=== PATIENT | female | born 1940 | race Caucasian/White ===

== ENCOUNTER 2017-06-04 13:59 | Emergency (ER) | payer OTHER ==
--- NOTE | 2017-06-04 14:28 | EDPHY ---
H & P Stated Complaint: pt c/o anxiety reactions getting worse since january Time Seen by Provider: 06/04/17 14:27 HPI/ROS: CHIEF COMPLAINT: Anxiety, chest pain HISTORY OF PRESENT ILLNESS: The patient presents to the ED with a 1 day history of chest pain and anxiety. The patient reports that she was recently started on BuSpar for anxiety. She has been increasing the dose of the medication over the past several weeks. The patient has been on lorazepam for anxiety in the past. She recently traveled to the area from [place]. The patient denies any fever, cough or congestion. She denies any asymmetric calf pain or swelling. She denies pleuritic chest pain. The patient has no history of coronary artery disease. REVIEW OF SYSTEMS: A comprehensive 10 point review of systems is otherwise negative aside from elements mentioned in the history of present illness. Source: Patient Exam Limitations: No limitations - Personal History Current Tetanus Diphtheria and Acellular Pertussis (TDAP): Yes - Medical/Surgical History Hx Asthma: No Hx Chronic Respiratory Disease: No Hx Diabetes: No Hx Cardiac Disease: No Hx Renal Disease: No Hx Cirrhosis: No Hx Alcoholism: No Hx HIV/AIDS: No Hx Splenectomy or Spleen Trauma: No Other PMH: tubal ligation, tonsilectomy, prolonged exposure to carbon monoxide. - Social History Smoking Status: Former smoker - Physical Exam Exam: General Appearance: Alert, no distress Eyes: Pupils equal and round no pallor or injection ENT, Mouth: Mucous membranes moist Respiratory: There are no retractions, lungs are clear to auscultation Cardiovascular: Regular rate and rhythm Gastrointestinal: Abdomen is soft and nontender, no masses, bowel sounds normal Neurological: 5/5 strength all 4 extremities Skin: Warm and dry, no rashes Musculoskeletal: Neck is supple nontender Extremities: symmetrical, full range of motion Constitutional: Initial Vital Signs Temperature (C) 36.9 C 06/04/17 14:06 Heart Rate 81 06/04/17 14:06 Respiratory Rate 16 06/04/17 14:06 Blood Pressure 121/75 H 06/04/17 14:06 O2 Sat (%) 95 06/04/17 14:06 O2 Delivery Mode Room Air Allergies/Adverse Reactions: No Known Allergies Allergy (Unverified 06/04/17 14:04) Home Medications: Medication Instructions Recorded LORazepam [Ativan] 0.5 tab PO BID PRN #10 tab 06/04/17 Lorazepam 06/04/17 busPIRone 06/04/17 Medical Decision Making - Diagnostics EKG Interpretation: EKG: Complete interpretation has been separately recorded in the AVST archive. Summary impression: Sinus rhythm, rate 74. ED Course/Re-evaluation: The patient presents to the ED with anxiety and associated symptoms of chest pain from that condition. The patient has no risk factors for cardiac disease. Her chest pain is nonexertional. The patient does report that the source of the discomfort and pain is from her anxiety. The patient's EKG demonstrates no evidence of ischemia. The patient's troponin is normal. The patient was given a 0.5 mg of Ativan. The patient will be given a short course of Ativan. She plans to follow up with her primary care provider in several weeks. She has been informed that Ativan is habit forming and not appropriate for chronic use. The patient will be discharged from the emergency department. Differential Diagnosis: Differential diagnosis considered includes anxiety, acute coronary syndrome, pericarditis, myocarditis - Data Points Laboratory Results: Laboratory Results 06/04/17 15:00 06/04/17 15:00 06/04/17 06/04/17 15:00 15:00 WBC 6.05 10^3/uL 10^3/uL (3.80-9.50) RBC 4.19 10^6/uL 10^6/uL (4.18-5.33) Hgb 13.6 g/dL g/dL (12.6-16.3) Hct 39.8 % % (38.0-47.0) MCV 95.0 fL fL (81.5-99.8) MCH 32.5 pg pg (27.9-34.1) MCHC 34.2 g/dL g/dL (32.4-36.7) RDW 13.8 % % (11.5-15.2) Plt Count 262 10^3/uL 10^3/uL (150-400) MPV 9.9 fL fL (8.7-11.7) Neut % (Auto) 64.7 % % (39.3-74.2) Lymph % (Auto) 25.3 % % (15.0-45.0) Lea % (Auto) 7.6 % % (4.5-13.0) Eos % (Auto) 1.7 % % (0.6-7.6) Baso % (Auto) 0.5 % % (0.3-1.7) Nucleat RBC Rel Count 0.0 % % (0.0-0.2) Absolute Neuts (auto) 3.92 10^3/uL 10^3/uL (1.70-6.50) Absolute Lymphs (auto) 1.53 10^3/uL 10^3/uL (1.00-3.00) Absolute Monos (auto) 0.46 10^3/uL 10^3/uL (0.30-0.80) Absolute Eos (auto) 0.10 10^3/uL 10^3/uL (0.03-0.40) Absolute Basos (auto) 0.03 10^3/uL 10^3/uL (0.02-0.10) Absolute Nucleated RBC 0.00 10^3/uL 10^3/uL (0-0.01) Immature Gran % 0.2 % % (0.0-1.1) Immature Gran # 0.01 10^3/uL 10^3/uL (0.00-0.10) Sodium 142 mEq/L mEq/L (135-145) Potassium 3.6 mEq/L mEq/L (3.5-5.2) Chloride 106 mEq/L mEq/L (97-110) Carbon Dioxide 24 mEq/l mEq/l (22-31) Anion Gap 12 mEq/L mEq/L (8-16) BUN 23 mg/dL mg/dL (7-23) Creatinine 0.8 mg/dL mg/dL (0.6-1.0) Estimated GFR > 60 Glucose 98 mg/dL mg/dL (70-100) Calcium 9.2 mg/dL mg/dL (8.5-10.4) Troponin I < 0.012 ng/mL ng/mL (0.000-0.034) Medications Given: Discontinued Medications Lorazepam (Ativan) 0.5 mg PO EDNOW ONE Stop: 06/04/17 15:12 Last Admin: 06/04/17 15:14 Dose: 0.5 mg Departure - Departure Disposition: Home, Routine, Self-Care Clinical Impression: Anxiety Condition: Good Instructions: Lorazepam (By mouth), Anxiolysis in Adults (ED) Additional Instructions: 1. Ativan as needed for anxiety. This medication is appropriate for short-term use and not appropriate for long-term management of anxiety. Ativan can lead to the rebound anxiety and dependence. 2. Please return to the ED for markedly worsening symptoms or other concerns. 3. Please schedule a follow-up appointment with your primary care provider. 4. You have been given the contact number for [facility] here in [place] if you wish to establish local psychiatric care. Referrals: WILL OCONNELL [Other] - As per Instructions [facility],. [Clinic] - As per Instructions Prescriptions: LORazepam [Ativan] 0.5 tab PO BID PRN #10 tab PRN Reason: for anxiety
--- NOTE | 2017-06-04 14:46 | CPEKG ---
Heart Rate: 74 RR Interval: 811 P-R Interval: 116 QRSD Interval: 86 QT Interval: 392 QTC Interval: 435 P Edelstein: 245 QRS Edelstein: -41 T Wave Edelstein: -3 EKG Severity - ABNORMAL ECG - EKG Impression: ECTOPIC ATRIAL RHYTHM EKG Impression: LEFT ANTERIOR FASCICULAR BLOCK EKG Impression: BORDERLINE T ABNORMALITIES, INFERIOR LEADS Electronically Signed By: Gigi Paredes 04-Jun-2017 14:59:59
[2017-06-04] MEDS ORDERED: LORazepam 0.5 MG TAB PO ONE (15:11)
[2017-06-04 15:13] LABS: PLATELET COUNT 262 10^3/uL (150-400)
[2017-06-04 16:07] VITALS: BP 132/81
== END 2017-06-04 16:06 | disposition home or self-care (01) ==
DX: F41.9 Anxiety disorder, unspecified (principal); Z87.891 Personal history of nicotine dependence